=== PATIENT | male | born 1985 | race Caucasian/White ===

== ENCOUNTER 2018-01-21 15:12 | Inpatient (IN) | payer OTHER ==
[~2018-01-21] VITALS: Ht 177.8 cm; Wt 94.8 kg
[2018-01-21 20:10] VITALS: BP 144/77
[2018-01-21 21:00] LABS: MAGNESIUM 2.3 mg/dL (1.8-2.4); PHOSPHOROUS 3.5 mg/dL (2.5-4.9)
[2018-01-21 21:09] LABS: FREE T4 1.17 ng/dL (0.76-1.46); FREE THYROXINE INDEX 2.8 ug/dL (1.4-4.5); T4(THYROXINE) 7.8 ug/dL (4.7-13.3)
[2018-01-21 21:13] LABS: BASOPHIL % 0.4 % (0-2); CHOLESTEROL/HDL RATIO 5.7; PLATELET COUNT 146 x10^3mcL (130-400); RED CELL DISTRIBUTION WIDTH 11.9 % (11.5-14.5)
[2018-01-21 21:15] LABS: T3 TOTAL 0.75 ng/mL
[2018-01-21 21:30] LABS: CALCIUM 8.6 mg/dL (8.5-10.1); CARBON DIOXIDE 29.5 mmol/L (21-32); CHLORIDE SERUM 107 mmol/L (98-107); CREATININE SERUM 0.9 mg/dL (0.7-1.3); GFR1 > 60 mL/min; GLUCOSE SERUM 106 mg/dL (74-106); POTASSIUM SERUM 4.1 mmol/L (3.5-5.1); SODIUM SERUM 144 mmol/L (136-145)
[2018-01-21 21:32] LABS: ALKALINE PHOSPHATASE 140 U/L (46-116); ALT/SGPT 721 U/L (16-63); AST/SGOT 310 U/L (15-37); BILIRUBIN TOTAL 5.3 mg/dL (0.20-1.00); LIPASE 248 IU/L (73-393); TOTAL PROTEIN, SERUM 7.2 g/dL (6.4-8.2)
[2018-01-22 05:42] VITALS: BP 125/75
[2018-01-22 06:00] LABS: BASOPHIL % 0.5 % (0-2); RED CELL DISTRIBUTION WIDTH 12.4 % (11.5-14.5)
[2018-01-22 06:28] LABS: CARBON DIOXIDE 27.8 mmol/L (21-32); CHLORIDE SERUM 105 mmol/L (98-107); CREATININE SERUM 0.9 mg/dL (0.7-1.3); GFR1 > 60 mL/min; GLUCOSE SERUM 107 mg/dL (74-106); MAGNESIUM 2.1 mg/dL (1.8-2.4); PHOSPHOROUS 3.3 mg/dL (2.5-4.9); POTASSIUM SERUM 3.8 mmol/L (3.5-5.1); SODIUM SERUM 141 mmol/L (136-145)
[2018-01-22 06:54] LABS: PLATELET COUNT 128 x10^3mcL (130-400)
[2018-01-22 09:49] VITALS: BP 146/68
[2018-01-22 12:09] LABS: ALBUMIN 3.6 g/dL (3.4-5.0); BILIRUBIN DIRECT 2.74 mg/dL (0.0-0.2); BILIRUBIN TOTAL 4.9 mg/dL (0.20-1.00); TOTAL PROTEIN, SERUM 6.6 g/dL (6.4-8.2)
[2018-01-22 12:57] VITALS: BP 107/62
[2018-01-22 13:33] LABS: microscopic required? NO
[2018-01-22 13:49] LABS: AMPHETAMINE QUAL UR NONE DETECTED (NEG <=1000)
[2018-01-22 13:50] LABS: UA SPECIFIC GRAVITY 1.025 (1.005-1.035); urine erythrocyte NEGATIVE (NEGATIVE)
[2018-01-22 17:07] VITALS: BP 119/71
[2018-01-22 19:36] VITALS: BP 118/82
[2018-01-23 05:30] VITALS: BP 142/80
[2018-01-23 08:41] LABS: CALCIUM 8.9 mg/dL (8.5-10.1); CARBON DIOXIDE 31.7 mmol/L (21-32); CHLORIDE SERUM 105 mmol/L (98-107); GFR1 > 60 mL/min; GLUCOSE SERUM 91 mg/dL (74-106); MAGNESIUM 2.1 mg/dL (1.8-2.4); PHOSPHOROUS 3.4 mg/dL (2.5-4.9); POTASSIUM SERUM 3.7 mmol/L (3.5-5.1); SODIUM SERUM 142 mmol/L (136-145)
[2018-01-23 08:44] LABS: BASOPHIL % 0.4 % (0-2); PLATELET COUNT 142 x10^3mcL (130-400); RED CELL DISTRIBUTION WIDTH 11.7 % (11.5-14.5)
[2018-01-23 11:08] VITALS: Ht 177.8 cm; Wt 94.8 kg
[2018-01-23 13:27] VITALS: BP 116/87
[2018-01-23 16:52] VITALS: BP 147/91
[2018-01-23 19:15] VITALS: BP 154/94
[2018-01-24 05:45] VITALS: BP 137/77
[2018-01-24 07:25] LABS: BASOPHIL % 0.4 % (0-2); RED CELL DISTRIBUTION WIDTH 12.1 % (11.5-14.5)
[2018-01-24 07:55] LABS: CALCIUM 8.7 mg/dL (8.5-10.1); CARBON DIOXIDE 29.8 mmol/L (21-32); CHLORIDE SERUM 107 mmol/L (98-107); CREATININE SERUM 0.9 mg/dL (0.7-1.3); GFR1 > 60 mL/min; GLUCOSE SERUM 109 mg/dL (74-106); PLATELET COUNT 128 x10^3mcL (130-400); POTASSIUM SERUM 3.4 mmol/L (3.5-5.1); SODIUM SERUM 142 mmol/L (136-145)
[2018-01-24 09:33] VITALS: BP 142/80
[2018-01-24] MEDS ORDERED: APAP/HYDROCODON1 T13 PO (15:16)
[2018-01-24] MEDS ORDERED: SIMETHICONE80 MG CH (15:17)
[2018-01-24] MEDS ORDERED: COL100 PO (15:17)
[2018-01-24 15:40] VITALS: BP 142/80
[2018-01-24 17:46] VITALS: BP 151/88
== END 2018-01-24 19:08 | disposition home or self-care (01) | DRG 419 ==
LOC: ED 15:12 → DU 19:23 → MU 01-23 15:33
PROVIDERS: Emergency Medicine; Family Medicine; Internal Medicine Gastroenterology; Surgery
PROC: 0F798ZZ Dilation of Common Bile Duct, Via Natural or Artificial Opening Endoscopic (ICD-10-PCS; 2018-01-22)
PROC: 0FT44ZZ Resection of Gallbladder, Percutaneous Endoscopic Approach (ICD-10-PCS; principal; 2018-01-23 10:00)
DX: K80.40 Calculus of bile duct with cholecystitis, unspecified, without obstruction (principal); K76.0 Fatty (change of) liver, not elsewhere classified; E78.5 Hyperlipidemia, unspecified; F12.10 Cannabis abuse, uncomplicated; E66.9 Obesity, unspecified; Z68.30 Body mass index [BMI] 30.0-30.9, adult
CPT/HCPCS: 43260; 83880; 84439; 94150; C1769; J0295; J0696; J1170; J1885; J2175; J2250; J2270; J2405; J3010; J3490; J7030; Q0092; Q0162; Q9967